=== PATIENT | male | born 1945 | race Two or more races ===

== ENCOUNTER 2021-07-06 15:23 | Inpatient (IN) | payer OTHER ==
[~2021-07-06] VITALS: Ht 167.6 cm; Wt 54.4 kg
[2021-07-06] MEDS ORDERED: DONEPEZIL HCL10 MG (20:18)
[2021-07-06] MEDS ORDERED: CALCITRIOL0.25 MCG (20:18)
[2021-07-06] MEDS ORDERED: FINASTERIDE5 MG (20:18)
[2021-07-06] MEDS ORDERED: TAMSULOSIN HCL0.4 MG (20:18)
[2021-07-06] MEDS ORDERED: LEVOTHYROXINE25 MC1 (20:18)
[2021-07-06] MEDS ORDERED: METHOTREXATE2.5 MG (20:19)
[2021-07-06] MEDS ORDERED: NIFEDIPINE ER60 M1 (20:19)
[2021-07-06] MEDS ORDERED: ATORVASTATIN CA20 MG (20:19)
[2021-07-06] MEDS ORDERED: GABAPENTIN300 M2 (20:19)
[2021-07-06] MEDS ORDERED: PRIMIDONE50 MG (20:19)
[2021-07-06] MEDS ORDERED: IRBESARTAN300 MG (20:19)
[2021-07-06] MEDS ORDERED: ALLOPURINOL300 MG (20:19)
[2021-07-09] MEDS ORDERED: TAMS0.4C PO (15:07)
[2021-07-09] MEDS ORDERED: ARICEPT10 MG PO (15:07)
[2021-07-09] MEDS ORDERED: ATORVASTATIN CA20 MG PO (15:08)
[2021-07-09] MEDS ORDERED: Procardia Xl 30MG TA PO (15:09)
[2021-07-09] MEDS ORDERED: AVAPRO300 MG PO (15:09)
[2021-07-09] MEDS ORDERED: CLONAZEPAM1 MG PO (15:10)
[2021-07-09] MEDS ORDERED: GABAPENTIN300 M2 PO (15:11)
[2021-07-09] MEDS ORDERED: PRIMIDONE50 MG PO (15:12)
[2021-07-09] MEDS ORDERED: LEVOTHYROXINE25 MCG PO (15:13)
[2021-07-09] MEDS ORDERED: CALCITRIOL0.25 MCG PO (15:14)
[2021-07-09] MEDS ORDERED: APETIGEN L790 MG/15 PO (15:14)
== END 2021-07-09 15:50 | disposition home or self-care (01) | DRG 683 ==
LOC: SEC-K 15:23 → MEDJ 15:23
PROVIDERS: ADMIT Internal Medicine Hematology & Oncology; ATTEND Internal Medicine Hematology & Oncology
PROC: 4A12X4Z Monitoring of Cardiac Electrical Activity, External Approach (ICD-10-PCS; 2021-07-06)
PROC: BT43ZZZ Ultrasonography of Bilateral Kidneys (ICD-10-PCS; principal; 2021-07-08)
PROC: BW4GZZZ Ultrasonography of Pelvic Region (ICD-10-PCS; 2021-07-08)
DX: I12.9 Hypertensive chronic kidney disease with stage 1 through stage 4 chronic kidney disease, or unspecified chronic kidney disease (principal); N18.4 Chronic kidney disease, stage 4 (severe); E44.0 Moderate protein-calorie malnutrition; E11.22 Type 2 diabetes mellitus with diabetic chronic kidney disease; E03.8 Other specified hypothyroidism; Z20.822 Contact with and (suspected) exposure to COVID-19; Z53.1 Procedure and treatment not carried out because of patient's decision for reasons of belief and group pressure
CPT/HCPCS: 240

== ENCOUNTER 2021-07-20 15:20 | Inpatient (IN) | payer OTHER ==
[~2021-07-20] VITALS: Ht 167.6 cm; Wt 54.4 kg
[~2021-07-20 15:20] MED LIST: ALLOPURINOL300 MG; APETIGEN L790 MG/15 PO; ARICEPT10 MG PO; ATORVASTATIN CA20 MG; ATORVASTATIN CA20 MG PO; AVAPRO300 MG PO; CALCITRIOL0.25 MCG; CALCITRIOL0.25 MCG PO; CLONAZEPAM1 MG PO; DONEPEZIL HCL10 MG; FINASTERIDE5 MG; GABAPENTIN300 M2; GABAPENTIN300 M2 PO; IRBESARTAN300 MG; LEVOTHYROXINE25 MC1; LEVOTHYROXINE25 MCG PO; METHOTREXATE2.5 MG; NIFEDIPINE ER60 M1; PRIMIDONE50 MG; PRIMIDONE50 MG PO; Procardia Xl 30MG TA PO; TAMS0.4C PO; TAMSULOSIN HCL0.4 MG
== END 2021-07-27 15:53 | disposition expired | DRG 811 ==
LOC: ER 15:20 → SEC-K 21:02 → MEDJ 21:02 → SEC-K 07-21 20:53 → MEDJ 07-22 10:55 → SEC-K 07-22 11:27 → MEDJ 07-22 15:37
PROVIDERS: ADMIT Internal Medicine Hematology & Oncology; ATTEND Internal Medicine Hematology & Oncology
PROC: 4A12X4Z Monitoring of Cardiac Electrical Activity, External Approach (ICD-10-PCS; principal; 2021-07-22)
PROC: 5A09457 Assistance with Respiratory Ventilation, 24-96 Consecutive Hours, Continuous Positive Airway Pressure (ICD-10-PCS; 2021-07-22)
PROC: 02HV33Z Insertion of Infusion Device into Superior Vena Cava, Percutaneous Approach (ICD-10-PCS; 2021-07-24)
PROC: B24BZZZ Ultrasonography of Heart with Aorta (ICD-10-PCS; 2021-07-24)
DX: D64.9 Anemia, unspecified (principal); J96.01 Acute respiratory failure with hypoxia; I21.4 Non-ST elevation (NSTEMI) myocardial infarction; E87.2 Acidosis; E87.0 Hyperosmolality and hypernatremia; I12.0 Hypertensive chronic kidney disease with stage 5 chronic kidney disease or end stage renal disease; N17.8 Other acute kidney failure; N18.4 Chronic kidney disease, stage 4 (severe); I95.89 Other hypotension; D63.1 Anemia in chronic kidney disease; R79.89 Other specified abnormal findings of blood chemistry; G30.8 Other Alzheimer's disease; F02.80 Dementia in other diseases classified elsewhere, unspecified severity, without behavioral disturbance, psychotic disturbance, mood disturbance, and anxiety; E03.8 Other specified hypothyroidism; G47.33 Obstructive sleep apnea (adult) (pediatric)